=== PATIENT | male | born 1990 | race Caucasian/White ===

== ENCOUNTER 2017-03-25 07:27 | Emergency (ER) | payer BC ==
[~2017-03-25] VITALS: Ht 182.9 cm; Wt 73.0 kg
[2017-03-25 07:38] VITALS: TEMP 37; O2SAT 98; Ht 182.9 cm; Wt 73.0 kg
[2017-03-25] MEDS ORDERED: SODIUM CHLORIDE 0.9% 1000ML 1,000 ML IV SCH (07:50)
[2017-03-25] MEDS ORDERED: IBUP-103 PO (07:51)
--- NOTE | 2017-03-25 08:00 | EMERGENCY ROOM VISIT NOTE ---
History First contact with patient: 07:39 Chief Complaint: CHEST PAIN Stated Complaint: CHEST PAINS, COLD HANDS AND FEET, WEAK LEFT Nursing Triage Summary: pt reports since approx 0400 he has had irregular heartbeat and left sided chest pain. pt reports left arm weakness. pt reports he had similar episode last week and was seen at [facility]. History of Present Illness The patient is a 26 year old male who presents to the Emergency Room via private vehicle accompanied by female with complaints of "chest pains, cold hands and feet, weak left arm". The patient states that today around 4 AM, he was at work at rest when his hands and feet became cold, and his heart started to "pounding". He then states that he had a diffuse feeling of weakness, and then his left arm became weak around the region of the elbow. He felt as if it was not as strong as the right. He describes it as if he was at the gym after a long workout session. He states that after 2 hours a rating seem to calm down except his left arm persisted to feel weak. He states that the general weakness also persisted, and when he left work approximate 2 hours after the event began he was feeling better. He notes that the chest pain is rated around region of the left nipple, and is not constant and is more erratic in nature. He also states that he or one other episode one week ago. He notes that he was taken by [facility] to [facility] for concern over a heart attack. He states that they did not find anything wrong. He at this time denies any chest pain, any other pain, any weakness. Any history of heart troubles, history of blood clots, smoking, recent injury or trauma, hormone use, speech troubles, history of stroke, drug use. He notes his grandfather does have a extensive heart history to include myocardial infarction. The patient also states that at baseline his left hand is not as strong as his right secondary to injury in the past. Review of Systems A complete 10-point Review of Systems was discussed with the patient, with pertinent positives and negatives listed in the History of Present Illness. All remaining Review of Systems questions can be considered negative unless otherwise specified. Past Medical/Surgical History No pertinent past medical history. Family History Grandfather with CA. Social History Smoking Status: Never Smoker Social History: Patient is currently employed locally. Current/Historical Medications Scheduled Ibuprofen Tab (Advil), 200 MG PO DAILY Allergies Coded Allergies: No Known Allergies (Unverified , 03/25/17) Physical Exam Vital Signs Date Time Temp Pulse Resp B/P Pulse Ox O2 Delivery O2 Flow Rate FiO2 03/25/17 10:43 56 16 134/65 98 03/25/17 10:38 56 03/25/17 08:36 67 16 127/77 98 Room Air 03/25/17 07:40 68 03/25/17 07:38 37.0 83 18 124/71 100 Room Air 03/25/17 07:38 98 Room Air 03/25/17 07:38 99 Room Air Physical Exam VITAL SIGNS - Vital signs and nursing notes were reviewed. GENERAL -26-year-old male appearing his stated age who is in no acute distress. Communicates well with provider and answers questions appropriately. SKIN - Without rashes. No petechial rashes. HEAD - NC/AT. No kaur signs or raccoons eyes. EYES - PERRL with EOMI bilaterally. Sclera anicteric. Palpebral conjunctiva pink and moist with no injection noted. EARS - No deformities of external structures noted on gross examination bilaterally. No pain elicited with palpation of the tragus bilaterally. External auditory canals without discharge or otorrhea. Tympanic membranes pearly varner without retraction or bulging. No fluid or purulent material visualized behind the TM. Handle of malleus, umbo, cone of light, pars tensa/ flaccid all easily visualized. NOSE - Midline and without cyanosis. No epistaxis or purulent drainage noted. Septum midline without deviation or septal hematoma noted. MOUTH/OROPHARYNX - Without perioral cyanosis. Buccal mucosa pink and moist and without leukoplakia. Tongue midline with equal elevation of palate bilaterally. No tonsillar hypertrophy, erythema, or exudates noted. Good dentition noted. NECK - Neck with FROM. Supple to palpation. No lymphadenopathy noted. No nuchal rigidity. No meningismus. LUNGS - Chest wall symmetric without accessory muscle use, intercostals retractions, or central cyanosis. Normal vesicular breath sounds CTA B/L. No wheezes, rales, or rhonchi appreciated. CARDIAC - RRR with S1/S2. No murmur, rubs, or gallops appreciated. No tenderness of the chest to palpation. ABDOMEN - Abdominal contour without pulsations or visible masses. BS normoactive all four quadrants. No tenderness, palpable masses, hepatosplenomegaly, or ascites noted. EXTREMITIES - No clubbing or peripheral cyanosis. No pretibial edema present. He is neurovascularly intact in the extremities. +5/5 strength noted in UE/LE bilaterally. NEUROLOGIC - Cranial nerves II through XII grossly intact. Sensory intact to light touch throughout. No neurologic deficits appreciated. PSYCH - A&Ox3 and cooperates fully with examiner. Pt is very pleasant and interacts well with examiner. Medical Decision & Procedures ER Provider Diagnostic Interpretation: CHEST ONE VIEW PORTABLE CLINICAL HISTORY: Chest pain. COMPARISON STUDY: No previous studies for comparison. FINDINGS: Lung volumes are normal. There is no pneumothorax or pleural effusion. Pulmonary vascularity is normal. Cardiac size is normal. Mediastinal contours are normal. There is no evidence of pulmonary edema. IMPRESSION: No acute cardiopulmonary findings. Electronically signed by: Clinton Barrera M.D. 03/25/2017 8:17 AM Dictated Date/Time: 03/25/2017 8:[address]AST CT DOSE: 537.48 mGy.cm HISTORY: Headache. Left arm weakness. Stroke. TECHNIQUE: Multiaxial CT images of the head were performed without the use of intravenous contrast. Automated exposure control was utilized for this study. Comparison: None. Findings: The paranasal sinuses and mastoid air cells are clear. The calvarium and skull base are intact. The ventricles and sulci are within normal limits. There is no mass, hematoma, midline shift, or acute infarct. Impression: No acute intracranial abnormality. Electronically signed by: Juan Flower M.D. 03/25/2017 8:24 AM Dictated Date/Time: 03/25/2017 8:22 AM Laboratory Results 03/25/17 07:45 Red Blood Count 4.87, Mean Corpuscular Volume 86.7, Mean Corpuscular Hemoglobin 31.6, Mean Corpuscular Hemoglobin Concent 36.5, Mean Platelet Volume 9.6, Neutrophils (%) (Auto) 69.1, Lymphocytes (%) (Auto) 22.8, Monocytes (%) (Auto) 6.9, Eosinophils (%) (Auto) 0.7, Basophils (%) (Auto) 0.3, Neutrophils # (Auto) 6.09, Lymphocytes # (Auto) 2.01, Monocytes # (Auto) 0.61, Eosinophils # (Auto) 0.06, Basophils # (Auto) 0.03 03/25/17 07:45 Test 03/25/17 07:45 03/25/17 08:25 03/25/17 09:42 White Blood Count 8.82 K/uL (4.8-10.8) Red Blood Count 4.87 M/uL (4.7-6.1) Hemoglobin 15.4 g/dL (14.0-18.0) Hematocrit 42.2 % (42-52) Mean Corpuscular Volume 86.7 fL (80-100) Mean Corpuscular Hemoglobin 31.6 pg (25-34) Mean Corpuscular Hemoglobin Concent 36.5 g/dl (32-36) Platelet Count 209 K/uL (130-400) Mean Platelet Volume 9.6 fL (7.4-10.4) Neutrophils (%) (Auto) 69.1 % Lymphocytes (%) (Auto) 22.8 % Monocytes (%) (Auto) 6.9 % Eosinophils (%) (Auto) 0.7 % Basophils (%) (Auto) 0.3 % Neutrophils # (Auto) 6.09 K/uL (1.4-6.5) Lymphocytes # (Auto) 2.01 K/uL (1.2-3.4) Monocytes # (Auto) 0.61 K/uL (0.11-0.59) Eosinophils # (Auto) 0.06 K/uL (0-0.5) Basophils # (Auto) 0.03 K/uL (0-0.2) RDW Standard Deviation 39.2 fL (36.4-46.3) RDW Coefficient of Variation 12.3 % (11.5-14.5) Immature Granulocyte % (Auto) 0.2 % Immature Granulocyte # (Auto) 0.02 K/uL (0.00-0.02) Prothrombin Time 11.3 SECONDS (9.0-12.0) Prothromb Time International Ratio 1.1 (0.9-1.1) Activated Partial Thromboplast Time 25.5 SECONDS (21.0-31.0) Partial Thromboplastin Ratio 1.0 Anion Gap 10.0 mmol/L (3-11) Est Creatinine Clear Calc Drug Dose 126.7 ml/min Estimated GFR () 133.5 Estimated GFR (Non- 115.2 BUN/Creatinine Ratio 13.5 (10-20) Calcium Level 9.0 mg/dl (8.5-10.1) Total Bilirubin 2.6 mg/dl (0.2-1) Aspartate Amino Transf (AST/SGOT) 19 U/L (15-37) Alanine Aminotransferase (ALT/SGPT) 25 U/L (12-78) Alkaline Phosphatase 56 U/L (45-117) Total Creatine Kinase 89 U/L (39-308) Creatine Kinase MB 1.4 ng/ml (0.5-3.6) Creatine Kinase MB Ratio 1.6 (0-3.0) Total Protein 7.5 gm/dl (6.4-8.2) Albumin 4.6 gm/dl (3.4-5.0) Globulin 2.9 gm/dl (2.5-4.0) Albumin/Globulin Ratio 1.6 (0.9-2) Thyroid Stimulating Hormone (TSH) 3.290 uIu/ml (0.300-4.500) Lyme Disease IgG Antibody NEG (NEG) Lyme Disease IgM Antibody NEG (NEG) Urine Color YELLOW Urine Appearance CLEAR (CLEAR) Urine pH 6.0 (4.5-7.5) Urine Specific [place] 1.017 (1.000-1.030) Urine Protein NEG (NEG) Urine Glucose (UA) NEG (NEG) Urine Ketones TRACE (NEG) Urine Occult Blood NEG (NEG) Urine Nitrite NEG (NEG) Urine Bilirubin NEG (NEG) Urine Urobilinogen NEG (NEG) Urine Leukocyte Esterase NEG (NEG) Urine Opiates Screen NEG (NEG) Urine Methadone, Qualitative NEG (NEG) Urine Barbiturates NEG (NEG) Urine Phencyclidine (PCP) Level NEG (NEG) Ur Amphetamine/Methamphetamine NEG (NEG) MDMA (Ecstasy) Screen NEG (NEG) Urine Benzodiazepines Screen NEG (NEG) Urine Cocaine Metabolite NEG (NEG) Urine Marijuana (THC) NEG (NEG) Bedside Troponin I 0.010 ng/ml (0-0.045) Medications Administered Medications (Trade) Dose Ordered Sig/Pauline Route Start Time Stop Time Status Last Admin Dose Admin Sodium Chloride (Nss 1000ml) 1,000 ml @ 50 mls/hr Q20H IV 03/25/17 07:50 03/25/17 10:52 DC 03/25/17 08:34 50 MLS/HR Medical Decision Patient was seen and evaluated as above. After obtaining a thorough history and physical examination IV access was initiated and an emergent cardiac and stroke workup began secondary to subjective examination findings. Objectively, my physical examination does not reveal any evidence of stroke at this time, he is completely neurologically intact and his emergent EKG reveals no ST segment elevation or evidence of myocardial infarction. It is normal sinus rhythm, there are T-wave depressions in the septal lead of V1 noted. CBC reveals no leukocytosis or emergent anemia. Coagulation studies unremarkable. CMP reveals normal electrolytes, kidney function. Bilirubin is elevated at 2.6, the patient was aware of this in the past. Other liver functions are normal. CK-MB and CPK is normal. Point care troponin 2 is negative. TSH is unremarkable. Urine reveals trace ketones, otherwise unremarkable. Urine drug screen is negative. Negative for Lyme. CT was obtained of the head secondary to his subjective neurologic deficit in the left upper extremity. This was negative. Results as above. I agree with radiologist findings. The other, was a chest x-ray which is also normal, results as above. I agree with radiologist findings. The patient was monitored throughout his stay and no emergent vital signs were noted nor any arrhythmias. The patient at this time I believe is stable for discharge, with close follow-up with his family doctor. He indicated that he has an appointment tomorrow with his family doctor, and I believe that keeping this appointment is appropriate. I did discuss the patient about potentially staying in the hospital for continued workup however I do believe that following up with his family doctor is most appropriate. He seemed happy with plan of care, was educated upon worrisome symptoms in which to return, had questions answered prior to discharge and was discharged home in good condition. I do not suspect that his symptoms at this time or emergent in nature. He certainly is to return with any new onset of the symptoms. He is to begin an 81 mg aspirin daily. In the evaluation treatment this patient the following differential diagnoses were entertained: CVA, TIA, CA, anxiety, fatigue, costochondritis, hypertension , among others. Impression Primary Impression: Chest wall pain Additional Impression: Left arm weakness Departure Information Dispostion Home / Self-Care Condition GOOD Referrals Saulo Brito D.O. (PCP) Patient Instructions My [facility] Additional Instructions You were seen and evaluated in the emergency department for your chest pain and left arm weakness. At this point, as we discussed I believe is appropriate that you follow-up with your family doctor tomorrow at your appointment. It is recommended to begin taking a baby 81 mg aspirin daily. Please keep your appointment tomorrow, and take the paperwork that I provided. Please return to the emergency department with any new/concerning symptoms. Problem Qualifiers
[2017-03-25 08:03] LABS: BASO % 0.3 %; BASO ABS # 0.03 K/uL (0-0.2); COMPLETE YES; EOS % 0.7 %; HEMATOCRIT 42.2 % (42-52); IG% 0.2 %; LYMPH % 22.8 %; LYMPH ABS # 2.01 K/uL (1.2-3.4); MEAN CELL VOLUME 86.7 fL (80-100); MEAN CORPUSCULAR HEMOGLOBIN 31.6 pg (25-34); MEAN CORPUSCULAR HGB CONC 36.5 g/dl (32-36); MEAN PLATELET VOLUME 9.6 fL (7.4-10.4); MONO % 6.9 %; NEUT % 69.1 %; PLATELET COUNT 209 K/uL (130-400); RED BLOOD COUNT 4.87 M/uL (4.7-6.1); WHITE BLOOD COUNT 8.82 K/uL (4.8-10.8)
--- NOTE | 2017-03-25 08:18 | DIAGNOSTIC IMAGING REPORT ---
CHEST ONE VIEW PORTABLE CLINICAL HISTORY: Chest pain. COMPARISON STUDY: No previous studies for comparison. FINDINGS: Lung volumes are normal. There is no pneumothorax or pleural effusion. Pulmonary vascularity is normal. Cardiac size is normal. Mediastinal contours are normal. There is no evidence of pulmonary edema. IMPRESSION: No acute cardiopulmonary findings. Electronically signed by: Clinton Barrera M.D. 03/25/2017 8:17 AM Dictated Date/Time: 03/25/2017 8:17 AM
[2017-03-25 08:19] LABS: INR 1.1 (0.9-1.1); PROTHROMBIN TIME (PATIENT) 11.3 SECONDS (9.0-12.0)
[2017-03-25 08:22] LABS: BUN/CREATININE RATIO 13.5 (10-20); CREATININE 0.92 mg/dl (0.60-1.40); POTASSIUM 3.5 mmol/L (3.5-5.1)
--- NOTE | 2017-03-25 08:25 | DIAGNOSTIC IMAGING REPORT ---
HEAD CT NONCONTRAST CT DOSE: 537.48 mGy.cm HISTORY: Headache. Left arm weakness. Stroke. TECHNIQUE: Multiaxial CT images of the head were performed without the use of intravenous contrast. Automated exposure control was utilized for this study. Comparison: None. Findings: The paranasal sinuses and mastoid air cells are clear. The calvarium and skull base are intact. The ventricles and sulci are within normal limits. There is no mass, hematoma, midline shift, or acute infarct. Impression: No acute intracranial abnormality. Electronically signed by: Juan Flower M.D. 03/25/2017 8:24 AM Dictated Date/Time: 03/25/2017 8:22 AM
[2017-03-25 08:32] LABS: ALB/GLOB RATIO 1.6 (0.9-2); CKMB/CK RATIO 1.6 (0-3.0); THYROID STIMULATING HORMONE 3.29 uIu/ml (0.300-4.500)
[2017-03-25 08:43] LABS: URINE APPEARANCE CLEAR (CLEAR); URINE BILIRUBIN NEG (NEG); URINE COLOR YELLOW; URINE NITRITE NEG (NEG); URINE SPECIFIC GRAVITY 1.017 (1.000-1.030); UROBILINOGEN NEG (NEG); ZZUR CULT IF INDIC CLEAN CATCH NO
[2017-03-25 08:49] LABS: MANUAL MICROSCOPIC REQUIRED? NO; REVIEW REQ? NO
[2017-03-25 09:03] LABS: LYME DISEASE AB IGG NEG (NEG)
[2017-03-25 09:04] LABS: LYME DISEASE AB IGM NEG (NEG)
[2017-03-25 09:28] LABS: BENZODIAZEPINE, URINE NEG (NEG); COCAINE,URINE NEG (NEG); PHENCYCLIDINE, URINE NEG (NEG)
[2017-03-25 10:43] VITALS: BP 134/65; PULSE 56; O2SAT 98
== END 2017-03-25 10:45 | disposition home or self-care (01) ==
LOC: C.EDB 07:31
DX: R07.89 Other chest pain (principal); M62.81 Muscle weakness (generalized)